=== PATIENT | male | born 1935 | race Caucasian/White ===

== ENCOUNTER 2021-08-29 13:35 | Emergency (ER) | payer MEDICARE, OTHER ==
[2021-08-29 13:47] LABS: BASOPHILS % (AUTO) 0 % (0-10); EOSINOPHILS # (AUTO) 0.1 10^3/uL (0.0-0.3); EOSINOPHILS % (AUTO) 1 % (0-10); HEMATOCRIT 41 % (40-54); LYMPHOCYTES % (AUTO) 18 % (12-44); MEAN CORPUSCULAR HEMOGLOBIN 26 pg (25-34); MEAN CORPUSCULAR HGB CONC 32 g/dL (32-36); MEAN CORPUSCULAR VOLUME 81 fL (80-99); MEAN PLATELET VOLUME 10.3 fL (9.0-12.2); MONOCYTES # (AUTO) 0.4 10^3/uL (0.0-1.0); MONOCYTES % (AUTO) 8 % (0-12); NEUTROPHILS # (AUTO) 3.9 10^3/uL (1.8-7.8); NEUTROPHILS % (AUTO) 72 % (42-75); PLATELET COUNT 135 10^3/uL (130-400); WHITE BLOOD COUNT 5.4 10^3/uL (4.3-11.0)
--- NOTE | 2021-08-29 13:48 | ED Neurological Problem ---
General Chief Complaint: Neuro-Stroke Like Symptoms Stated Complaint: VISION LOSS Source: patient, EMS Exam Limitations: no limitations History of Present Illness Date Seen by Provider: Aug 29, 2021 Time Seen by Provider: 13:38 Initial Comments 86-year-old male with past medical history of A. fib on Xarelto, hypertension, hyperlipidemia coming in via EMS from [facility] walk-in urgent care due to right-sided painless vision loss. Started yesterday morning when he woke up where he had no vision from his right eye. This is never happened before. Nothing seems to make it better or worse. He denies any pain anywhere including no headache, chest pain, or any other symptoms. Denies any weakness, numbness, or any other concerns. Has been taking his Xarelto, but does not believe he has been taking his carvedilol. Allergies and Home Medications Allergies Coded Allergies: No Known Drug Allergies (Unverified , 08/29/21) Patient Home Medication List Home Medication List Reviewed: Yes Review of Systems Review of Systems Constitutional: No fever Eyes: Blindness (Right I) Ears, Nose, Mouth, Throat: no symptoms reported Respiratory: no symptoms reported Cardiovascular: no symptoms reported Gastrointestinal: no symptoms reported Genitourinary: no symptoms reported Musculoskeletal: no symptoms reported Skin: no symptoms reported Psychiatric/Neurological: No Symptoms Reported Endocrine: No Symptoms Reported Hematologic/Lymphatic: No Symptoms Reported All Other Systems Reviewed Negative Unless Noted: Yes Past Bgnszwr-Bnqsrq-Xkyqwk Hx Patient Social History Tobacco Use?: No Smoking Status: Former Smoker Substance use?: No Alcohol Use?: Yes Alcohol type: Beer Alcohol Frequency: Daily Past Medical History Surgeries: Yes (coronary stenting) Physical Exam Vital Signs Vital Signs - First Documented 08/29/21 13:35 Temp 36.7 Pulse 88 Resp 18 B/P (MAP) 181/107 (131) Pulse Ox 99 O2 Delivery Room Air Capillary Refill : Height, Weight, BMI Height: '" Weight: lbs. oz. kg; BMI Method: General Appearance: WD/WN, no apparent distress HEENT: PERRL/EOMI, normal ENT inspection, pharynx normal Neck: non-tender, full range of motion, supple, normal inspection Respiratory: chest non-tender, lungs clear, normal breath sounds, no respiratory distress, no accessory muscle use Cardiovascular: no edema, no murmur, irregularly irregular Gastrointestinal: normal bowel sounds, non tender, soft; No distended, No guarding, No rebound Back: normal inspection Extremities: normal range of motion, non-tender, normal inspection, no pedal edema, no calf tenderness, normal capillary refill Neurologic/Psychiatric: no motor/sensory deficits, alert, normal mood/affect, oriented x 3, other (Complete blackout vision to the right eye, pupil is still reactive, extraocular movements intact, cranial nerves otherwise normal) Crainal Nerves: normal hearing, normal speech Coordination/Gait: normal finger to nose, normal gait Motor/Sensory: no motor deficit, no sensory deficit Skin: normal color, warm/dry Lymphatic: no adenopathy Stroke Onset of Symptoms Date of Onset of Symptoms: Aug 28, 2021 Time of Symptom Onset: 07:00 Onset of Symptoms: Yes NIH Stroke Scale Assessment Select: Initial Level of Consciousness: 0=Alert (0), Level of Consciousness-Questions: 0=Answers both month/age (0), LOC Commands: 0=Performs both tasks (0), Gaze: Normal (0), Visual [place]: 2=Complete hemianopia complete vision loss in right eye (2), Facial Movement (Facial Paresis): 0=Normal symmetrical mnt (0), Motor Function-Arms Right: 0=No drift (0), Motor Function-Arms Left: 0=No drift (0), Motor Function-Legs Right: 0=No drift (0), Motor Function-Legs Left: 0=No drift (0), Limb Ataxia: 0=Abse nt (0), Sensory: 0=Normal:no loss (0), Best Language: 0=No aphasia (0), Dys arthria: 0=Normal (0), Extinction & Inattention: 0=No abnormality (0), Total: 2 Stroke Thrombolytic Exclusion TPA Contraindication: Yes (symptoms started more than 24 hours ago) IV - TPa Received IV - TPa Procedure Performed?: No Progress/Results/Core Measures Results/Orders Lab Results Laboratory Tests Test 08/29/21 13:43 08/29/21 13:48 Range/Units White Blood Count 5.4 4.3-11.0 10^3/uL Red Blood Count 5.05 4.30-5.52 10^6/uL Hemoglobin 13.0 L 13.3-17.7 g/dL Hematocrit 41 40-54 % Mean Corpuscular Volume 81 80-99 fL Mean Corpuscular Hemoglobin 26 25-34 pg Mean Corpuscular Hemoglobin Concent 32 32-36 g/dL Red Cell Distribution Width 16.6 H 10.0-14.5 % Platelet Count 135 130-400 10^3/uL Mean Platelet Volume 10.3 9.0-12.2 fL Immature Granulocyte % (Auto) 1 % Neutrophils (%) (Auto) 72 42-75 % Lymphocytes (%) (Auto) 18 12-44 % Monocytes (%) (Auto) 8 0-12 % Eosinophils (%) (Auto) 1 0-10 % Basophils (%) (Auto) 0 0-10 % Neutrophils # (Auto) 3.9 1.8-7.8 10^3/uL Lymphocytes # (Auto) 1.0 1.0-4.0 10^3/uL Monocytes # (Auto) 0.4 0.0-1.0 10^3/uL Eosinophils # (Auto) 0.1 0.0-0.3 10^3/uL Basophils # (Auto) 0.0 0.0-0.1 10^3/uL Immature Granulocyte # (Auto) 0.0 0.0-0.1 10^3/uL Prothrombin Time 24.6 H 12.2-14.7 SEC INR Comment 2.2 H 0.8-1.4 Activated Partial Thromboplast Time 44 H 24-35 SEC D-Dimer 0.66 H 0.00-0.49 UG/ML Sodium Level 136 135-145 MMOL/L Potassium Level 4.2 3.6-5.0 MMOL/L Chloride Level 100 98-107 MMOL/L Carbon Dioxide Level 25 21-32 MMOL/L Anion Gap 11 5-14 MMOL/L Blood Urea Nitrogen 10 7-18 MG/DL Creatinine 1.17 0.60-1.30 MG/DL Estimat Glomerular Filtration Rate 61 BUN/Creatinine Ratio 9 Glucose Level 116 H 70-105 MG/DL Calcium Level 9.2 8.5-10.1 MG/DL Corrected Calcium 9.1 8.5-10.1 MG/DL Total Bilirubin 3.2 H 0.1-1.0 MG/DL Aspartate Amino Transf (AST/SGOT) 18 5-34 U/L Alanine Aminotransferase (ALT/SGPT) 9 0-55 U/L Alkaline Phosphatase 125 40-136 U/L Troponin I 0.44 *H <0.30 NG/ML Total Protein 7.7 6.4-8.2 GM/DL Albumin 4.1 3.2-4.5 GM/DL Glucometer 104 70-110 MG/DL My Orders Orders - NAA MCKAY MD Cbc With Automated Diff (08/29/21 13:43) Protime With Inr (08/29/21 13:43) Partial Thromboplastin Time (08/29/21 13:43) Comprehensive Metabolic Panel (08/29/21 13:43) Fibrin Degradation Products (08/29/21 13:43) Troponin I Fs (08/29/21 13:43) Chest 1 View Ap/Pa Only (08/29/21 13:43) Ekg Tracing (08/29/21 13:43) Accucheck Stat ONCE (08/29/21 13:43) Ed Iv/Invasive Line Start (08/29/21 13:43) Ed Iv/Invasive Line Start (08/29/21 13:43) Vital Signs Stroke Patient Q15M (08/29/21 13:43) Ct Head Wo-R/O Stroke (08/29/21 13:43) O2 (08/29/21 13:43) Intake & Output 06,14,22 (08/29/21 13:43) Monitor-Rhythm Ecg Trace Only (08/29/21 13:43) Dysphagia Screening Tool Q10MX1 (08/29/21 13:43) Aspirin Chewable Tablet (Baby Aspirin Ch (08/29/21 14:15) Medications Given in ED Current Medications Medications Dose Ordered Sig/Corine Route Start Time Stop Time Status Last Admin Dose Admin Aspirin 324 mg ONCE ONCE PO 08/29/21 14:15 08/29/21 14:16 DC 08/29/21 14:13 324 MG Vital Signs/I&O 08/29/21 13:35 Temp 36.7 Pulse 88 Resp 18 B/P (MAP) 181/107 (131) Pulse Ox 99 O2 Delivery Room Air Progress Progress Note : Progress Note 86-year-old male with above history coming in due to acute right-sided vision loss. ABCs were intact and vitals were stable on presentation. EKG with ventricularly paced rhythm that is irregular. He is on Xarelto and has not missed any doses. Physical exam with complete right-sided vision loss, difficult to assess his fundus on my exam. Ultrasound does not show any type of retinal detachment or vitreous detachment. I called and discussed the case with the stroke neurologist at , Dr. Villareal. Given he is out of any treatment window, there will be no acute interventions for them, she would recommend a stat MRI and ophthalmology consultation as well as admission to the neurology service at . They called back accepting him as a patient at 14:57. Awaiting a bed to be assigned for him at this time before he can be transferred. Initial ECG Impression Date: Aug 29, 2021 Initial ECG Impression Time: 13:44 Initial ECG Rate: 67 Comment Wide QRS with a ventricularly paced rhythm, is regular but there are no P waves Diagnostic Imaging Diagonstic Imaging: Xray (chest ), CT (head) Comments NAME: ISELA LION MED REC#: [id number] PT STATUS: REG ER : 1935 PHYSICIAN: NAA MCKAY MD ADMIT DATE: 08/29/21/ER FS Draft Date of Exam:08/29/21 CT HEAD WO-R/O STROKE Procedure: CT head wo r/o stroke. Technique: Multiple contiguous axial images were obtained through the brain without the use of intravenous contrast. Auto Exposure Controls were utilized during the CT exam to meet ALARA standards for radiation dose reduction. Indication: Complete right-sided painless vision loss, altered mental status. Comparison: None. Discussion: Area of decreased attenuation within the left occipital lobe, age indeterminate infarct. There is additional white matter hypoattenuation which is nonspecific though not greater than expected for age related chronic small vessel ischemic disease. Diffuse brain volume loss is likely also age related. No acute intracranial hemorrhage, mass, midline shift or hydrocephalus. The orbits, sinuses, right mastoid air cells, and calvarium are unremarkable. Partial left mastoid air cell effusion. Impression: 1. 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 This could be further evaluated with MRI as clinically indicated. Dictated on workstation # [id number] [facility], [place] NAME: ISELA LION MED REC#: [id number] PT STATUS: REG ER : 1935 PHYSICIAN: NAA MCKAY MD ADMIT DATE: 08/29/21/ER FS Draft Date of Exam:08/29/21 CHEST 1 VIEW AP/PA ONLY Indication: Altered mental status. Comparison: None. Discussion: Single portable upright view of the chest was obtained. Left-sided pacemaker is noted. Mild cardiomegaly is present. No christopher failure. No consolidation, pleural fluid, or pneumothorax. No osseous abnormality. Impression: 1. No acute cardiopulmonary process. Dictated on workstation # [id number] Dict: 08/29/21 1415 Trans: 08/29/21 1418 CVB [id number] Interpreted by: MARIA M TAYLOR MD Electronically signed by: Departure Impression Primary Impression: Monocular vision loss Disposition: XFER SHT-TRM HOSP Condition: Stable Admissions Decision to Admit/Date: Aug 29, 2021 Time/Decision to Admit Time: 14:40 Transfer Transfer Reason: Exceeds level of care Transfer Progress Notes See HPI, we do not have MRI, ophtho, or neuro at our facility currently Transfer Facility: [facility] Method of Transfer: EMS NAA MCKAY MD Aug 29, 2021 13:48
[2021-08-29 13:58] LABS: INR 2.2 (0.8-1.4); PROTHROMBIN TIME PATIENT 24.6 SEC (12.2-14.7)
[2021-08-29 14:03] LABS: BILIRUBIN,TOTAL 3.2 MG/DL (0.1-1.0); CALCIUM 9.2 MG/DL (8.5-10.1); CREATININE SERUM 1.17 MG/DL (0.60-1.30); POTASSIUM 4.2 MMOL/L (3.6-5.0)
[2021-08-29 14:04] LABS: ALBUMIN 4.1 GM/DL (3.2-4.5); TOTAL PROTEIN 7.7 GM/DL (6.4-8.2)
[2021-08-29 14:08] LABS: FIBRIN DEGRADATION PRODUCTS 0.66 UG/ML (0.00-0.49)
--- NOTE | 2021-08-29 14:11 | Diagnostic Imaging Report ---
Procedure: CT head wo r/o stroke. Technique: Multiple contiguous axial images were obtained through the brain without the use of intravenous contrast. Auto Exposure Controls were utilized during the CT exam to meet ALARA standards for radiation dose reduction. Indication: Complete right-sided painless vision loss, altered mental status. Comparison: None. Discussion: Area of decreased attenuation within the left occipital lobe, age indeterminate infarct. There is additional white matter hypoattenuation which is nonspecific though not greater than expected for age related chronic small vessel ischemic disease. Diffuse brain volume loss is likely also age related. No acute intracranial hemorrhage, mass, midline shift or hydrocephalus. The orbits, sinuses, right mastoid air cells, and calvarium are unremarkable. Partial left mastoid air cell effusion. Impression: 1. 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 This could be further evaluated with MRI as clinically indicated. Dictated by: Dictated on workstation # [id number]
[2021-08-29] MEDS ORDERED: ASPIRIN 81 MG CHEW (CHILDREN'S ASA) PO ONE (14:15)
--- NOTE | 2021-08-29 14:18 | Diagnostic Imaging Report ---
Indication: Altered mental status. Comparison: None. Discussion: Single portable upright view of the chest was obtained. Left-sided pacemaker is noted. Mild cardiomegaly is present. No christopher failure. No consolidation, pleural fluid, or pneumothorax. No osseous abnormality. Impression: 1. No acute cardiopulmonary process. Dictated by: Dictated on workstation # [id number]
[2021-08-29 16:21] VITALS: BP 163/87
== END 2021-08-29 17:05 | disposition short-term general hospital (02) ==
LOC: ER FS 13:36
DX: H54.61 Unqualified visual loss, right eye, normal vision left eye (principal); R94.31 Abnormal electrocardiogram [ECG] [EKG]; I48.91 Unspecified atrial fibrillation; Z79.01 Long term (current) use of anticoagulants; Z87.891 Personal history of nicotine dependence
CPT/HCPCS: 36415; 70450; 71045; 80053; 82947; 84484; 85025; 85379; 85610; 85730; 93005; 93041